=== PATIENT | female | born 1985 | race Caucasian/White ===

== ENCOUNTER 2020-07-17 19:41 | Emergency (ER) | payer OTHER, SELFPAY ==
[2020-07-17 19:56] VITALS: BP 169/74; PULSE 91; RESP 18; TEMP 37.2; O2SAT 98; BMI 44.6
--- NOTE | 2020-07-17 20:08 | ED_ITS ---
HPI - Wound/Laceration General Chief Complaint: Wound/Laceration Stated Complaint: fall in front yard, left knee and hernandez pain Time Seen by Provider: 07/17/20 20:06 Source: patient Mode of arrival: Family Vehicle Limitations: no limitations History of Present Illness HPI narrative: Patient is a 35-year-old female here for evaluation of a left knee injury. Patient states she was wearing some slippers and walking her dog outside when she slipped and fell landing on her left knee. She has been able to walk since then but has had quite a bit of discomfort in her knee. Does have abrasions on the front of her knee. Has not tried anything for symptoms prior to arrival. Related Data Previous Rx's Medication Instructions Recorded benzonatate 100 mg capsule 100 mg PO BID PRN #14 cap 04/21/19 Allergies Allergy/AdvReac Type Severity Reaction Status Date / Time peanut Allergy Severe Anaphylaxis Verified 07/17/20 20:00 acetaminophen [From TYLENOL] Allergy Intermediate VOMITING/RA Verified 07/17/20 20:00 SH strawberry Allergy Intermediate facial Verified 07/17/20 20:00 swelling Review of Systems Constitutional Constitutional: Denies fever(s) and Denies headache(s) ENT Ears, Nose, Mouth, and Throat: Denies headache(s) Musculoskeletal Musculoskeletal: Denies tingling Comments: Left knee pain Integumentary/Breasts Comments: Abrasions around the left knee Neurologic Neurologic: Denies headache(s) and Denies tingling Hematologic/Lymphatic On Anticoagulants: No Allergic/Immunologic Allergic/Immunologic: Denies urticaria Patient History Medical History Back pain Social History Smoking Status: Never smoker Smoking Status: Never smoker alcohol intake frequency: 0-2 drinks per day Alcohol type: wine and hard liquor Substance Use Type: marijuana Exam Initial Vital Signs Initial Vital Signs: Vital Signs Temperature 98.9 F 07/17/20 19:56 Pulse Rate 91 H 07/17/20 19:56 Respiratory Rate 18 07/17/20 19:56 Blood Pressure 169/74 H 07/17/20 19:56 Pulse Oximetry 98 07/17/20 19:56 Const General: cooperative, comfortable and well developed Limitations: mental status not altered HENMT Head: normal to inspection and normocephalic Cardio Pulses: dorsalis pedis present on the left Skin Other: Superficial abrasions anterior lateral aspect left knee. Neuro General: patient alert, patient awake and patient oriented x3 Sensory Exam: no sensory deficits noted Extrem Other: Patient does have full range of motion of the left ankle. Her left hip is unremarkable. She has tenderness with palpation of the left knee. She can flex her knee but only to approximately 30? before she has discomfort. No instability. Psych Appearance: grossly normal and well kempt Course Orders Ordered: ED Orders 07/17/20 20:08 XR knee LT 3V Stat Vital Signs Vital signs: Vital Signs - 8 hr 07/17/20 19:56 Temperature 98.9 F Pulse Rate 91 H Respiratory Rate 18 Blood Pressure 169/74 H Pulse Oximetry 98 [facility] - Wound/Laceration Imaging Data Extremity x-ray #1: Radiologist's Impression: [address] [id number] ReportSigned Patient: Balbina Gallo FMR#: [id number]: [id number]:[id number]/Sex: 35 / FDate of Service: 07/17/20Loc: EDAccession Number: [id number] Procedure: XR knee LT 3V Ordering Provider: Nirmal Orozco D.O. PROCEDURE: XR KNEE LT 3V INDICATIONS: pain after fall TECHNIQUE: 3 views of the knee were acquired. COMPARISON: None. FINDINGS: Bones: No fractures or dislocations. No suspicious bony lesions. There is mild narrowing of the medial femorotibial compartment joint space. Soft tissues: Small joint effusion. No suspicious soft tissue calcifications. IMPRESSION: No acute osseous abnormality. Small joint effusion. If clinical suspicion and/or symptoms persist, additional imaging with repeat plain films, or advanced imaging (e.g. CT, MRI) may be helpful for further assessment. Dictated by: Jorden Mccoy M.D. on 07/17/2020 at 20:20 Approved by: Jorden Mccoy M.D. on 07/17/2020 at 20:20 [facility] Narrative Medical decision making narrative: She is neurovascularly intact. X-ray showed no signs of fractures. The abrasions on the outside of her knee knee no inte rvention here in the emergency department. We did discuss care with regard to these. Patient states she has a pair crutches at home. Discussed elevation and icing. Informed her that of she continues to have discomfort and specific has instability in a couple weeks that she should talk with her primary doctor about further imaging such as an MRI. She expressed understanding and agreement. Discharge Plan Departure Patient Disposition: Home Clinical Impression: Abrasion of skin, Effusion of knee joint, left Instructions: DI for Knee Pain Activity Restrictions/Additional Instructions: You can walk on your knee as tolerated but use the crutches at home if needed as well. Recommend that you keep your knee elevated and iced. Contact your primary provider for follow-up. Return to the emergency department for any new or worsening symptoms Prescriptions: No Action benzonatate [Tessalon Perles] 100 mg capsule 100 mg PO BID PRN (Reason: cough) Qty: 14 RF: 0 Referrals: Darwin Belcher MD [Primary Care Provider] -
== END 2020-07-17 20:54 | disposition home or self-care (01) ==
PROVIDERS: Emergency Provider Emergency Medicine; PCP Family Medicine
DX: S80.212A Abrasion, left knee, initial encounter (principal); M25.462 Effusion, left knee; W19.XXXA Unspecified fall, initial encounter
CPT/HCPCS: 73562; 99281; 99283

== ENCOUNTER → 2021-07-01 17:55 | Outpatient (CLI) | payer OTHER, SELFPAY ==
--- NOTE | 2021-07-01 17:58 | DI.RAD.S_ITS ---
PROCEDURE: XR KNEE LT 3V INDICATIONS: L knee injury, fall on L knee TECHNIQUE: 3 views of the knee were acquired. COMPARISON: [facility], CR, XR KNEE LT 3V, 07/17/2020, 20:10. FINDINGS: Bones: No fractures or dislocations. No suspicious bony lesions. Mild degenerative joint disease. Soft tissues: Suspect moderate joint effusion. No suspicious soft tissue calcifications. IMPRESSION: 1. No acute osseous abnormalities. 2. Mild degenerative joint disease. 3. Suspect moderate knee joint effusion. Dictated by: Mayo Cross M.D. on 07/01/2021 at 18:23 Approved by: Mayo Cross M.D. on 07/01/2021 at 18:26
== END ==
PROVIDERS: PCP Family Medicine; Referring Provider Physician Assistant; Visit Provider Physician Assistant
DX: S89.92XA Unspecified injury of left lower leg, initial encounter (principal); M17.12 Unilateral primary osteoarthritis, left knee; W19.XXXA Unspecified fall, initial encounter
CPT/HCPCS: 73562